=== PATIENT | male | born 1960 | race Caucasian/White ===

== ENCOUNTER 2021-05-17 11:37 | Inpatient (IN) | payer OTHER ==
[2021-05-17 13:16] VITALS: BMI 26.4
[2021-05-17] MEDS ORDERED: MAGNESIUM CITRATE 300 ML BOTTLE PO PRN (15:31)
[2021-05-17] MEDS ORDERED: ONDANSETRON *ODT* 4 MG TABLET SL PRN (15:31)
[2021-05-17] MEDS ORDERED: NICOTINE POLACRILEX 2 MG GUM BUC PRN (15:31)
[2021-05-17] MEDS ORDERED: MAGNESIUM HYDROX 2400MG/30ML ORAL SUSPENSION 30 ML CUP PO PRN (15:31)
[2021-05-17] MEDS ORDERED: NICOTINE 10 MG CARTRIDGE (INHALER) IH PRN (15:31)
[2021-05-17] MEDS ORDERED: MENTHOL/PHENOL 1 EACH UD MM PRN (15:31)
[2021-05-17] MEDS ORDERED: BISMUTH SUBSALICYLATE 524 MG/30 ML PO PRN (15:31)
[2021-05-17] MEDS ORDERED: MAG HYDROX/AL HYDROX/SIMETH 30 ML UNIT-DOSE CUP PO PRN (15:31)
[2021-05-17] MEDS ORDERED: ACETAMINOPHEN 325 MG TABLET (FP) PO PRN ×2 (15:31)
[2021-05-17] MEDS ORDERED: IBUPROFEN 400 MG TABLET (FP) PO PRN (15:31)
[2021-05-17] MEDS ORDERED: diazePAM 5 MG TABLET PO PRN (15:31)
[2021-05-17] MEDS: diazePAM 5 MG TABLET PO SCH ×2 (17:21→22:10)
[2021-05-17] MEDS: METHOCARBAMOL 500 MG TABLET PO PRN (17:24)
[2021-05-17] MEDS: hydrOXYzine PAMOATE 25 MG CAPSULE (FP) PO PRN (22:10)
[2021-05-17] MEDS: MELATONIN 5 MG TABLETS PO SCH (22:10)
[2021-05-17] MEDS: THIAMINE HCL 100 MG TABLET (FP) PO SCH (22:10)
[2021-05-18] MEDS: diazePAM 5 MG TABLET PO SCH ×4 (06:29→22:23)
[2021-05-18] MEDS: NICOTINE 21 MG/24 HOURS TOPICAL PATCH TD SCH (10:38)
[2021-05-18] MEDS: PRENATAL VITAMINS W/ FOLIC ACID TABLET (FP) PO SCH (10:38)
[2021-05-18 14:04] LABS: HEMATOCRIT 49.7 % (35.4-49); HEMOGLOBIN 16.6 GM/dL (11.7-16.9); MCH 32.9 pg (25.7-33.7); MCHC 33.5 g/dl (32.0-35.9); MEAN CELL VOLUME 98.2 fl (80-96); MEAN PLT VOLUME 9.3 fl (7.5-11.1); PLATELET COUNT 189 10^3/uL (134-434); RBC 5.06 M/mm3 (4.00-5.60); RDW 15.4 % (11.9-15.9); WHITE BLOOD COUNT 7.1 K/mm3 (4.0-10.0)
[2021-05-18 14:19] LABS: ALBUMIN 3.5 g/dl (3.4-5.0); CALCIUM 8.8 mg/dL (8.5-10.1)
[2021-05-18 14:20] LABS: BLOOD UREA NITROGEN 8.9 mg/dL (7-18)
[2021-05-18 14:25] LABS: TOT PROT 6.7 g/dl (6.4-8.2)
[2021-05-18 16:50] LABS: HIV INTERPRETATION NEGATIVE (NEGATIVE)
[2021-05-18] MEDS: THIAMINE HCL 100 MG TABLET (FP) PO SCH (22:23)
[2021-05-18] MEDS: MELATONIN 5 MG TABLETS PO SCH (22:24)
[2021-05-19] MEDS: diazePAM 5 MG TABLET PO SCH ×3 (06:12→22:30)
[2021-05-19] MEDS: PRENATAL VITAMINS W/ FOLIC ACID TABLET (FP) PO SCH (10:12)
[2021-05-19] MEDS: NICOTINE 21 MG/24 HOURS TOPICAL PATCH TD SCH (10:12)
[2021-05-19] MEDS: THIAMINE HCL 100 MG TABLET (FP) PO SCH (22:30)
[2021-05-19] MEDS: MELATONIN 5 MG TABLETS PO SCH (22:30)
[2021-05-20] MEDS: diazePAM 5 MG TABLET PO SCH ×2 (05:41→17:54)
[2021-05-20] MEDS: METHOCARBAMOL 500 MG TABLET PO PRN (10:19)
[2021-05-20] MEDS: PRENATAL VITAMINS W/ FOLIC ACID TABLET (FP) PO SCH (10:19)
[2021-05-20] MEDS: NICOTINE 21 MG/24 HOURS TOPICAL PATCH TD SCH (10:22)
[2021-05-20] MEDS: hydrOXYzine PAMOATE 25 MG CAPSULE (FP) PO PRN (10:23)
[2021-05-20] MEDS: MELATONIN 5 MG TABLETS PO SCH (22:20)
[2021-05-20] MEDS: THIAMINE HCL 100 MG TABLET (FP) PO SCH (22:20)
[2021-05-21] MEDS ORDERED: diazePAM 5 MG TABLET PO ONE (06:00)
[2021-05-21 09:56] VITALS: BP 104/57; PULSE 52; TEMP 97.3
[2021-05-21] MEDS: PRENATAL VITAMINS W/ FOLIC ACID TABLET (FP) PO SCH (10:15)
[2021-05-21] MEDS: NICOTINE 21 MG/24 HOURS TOPICAL PATCH TD SCH (10:16)
== END 2021-05-21 13:06 | disposition other institution (70) | DRG 775 ==
LOC: YASAS 11:37 → Y6N 16:40
PROVIDERS: ADMIT Allergy & Immunology; ATTEND Allergy & Immunology
PROC: HZ2ZZZZ Detoxification Services for Substance Abuse Treatment (ICD-10-PCS; principal; 2021-05-17)
DX: F10.230 Alcohol dependence with withdrawal, uncomplicated (principal); F12.20 Cannabis dependence, uncomplicated; F17.210 Nicotine dependence, cigarettes, uncomplicated
CPT/HCPCS: 36415; 80053; 85027; 86780; 87389; 93005; 93010; C9803; U0003; U0005

== ENCOUNTER 2021-05-21 13:12 | Inpatient (IN) | payer OTHER ==
[2021-05-21] MEDS ORDERED: ACETAMINOPHEN 325 MG TABLET (FP) PO PRN (15:12)
[2021-05-21] MEDS ORDERED: LOPERAMIDE HCL 2 MG CAPSULE PO PRN (15:12)
[2021-05-21] MEDS ORDERED: MAGNESIUM CITRATE 300 ML BOTTLE PO PRN (15:12)
[2021-05-21] MEDS ORDERED: P-EPHED 60MG/TRIPROLIDI 2.5MG TABLET PO PRN (15:12)
[2021-05-21] MEDS ORDERED: guaiFENesin 200 MG/10 ML 10 ML UNIT-DOSE CUPS PO PRN (15:12)
[2021-05-21] MEDS ORDERED: MENTHOL/PHENOL 1 EACH UD MM PRN (15:12)
[2021-05-21] MEDS ORDERED: MAGNESIUM HYDROX 2400MG/30ML ORAL SUSPENSION 30 ML CUP PO PRN (15:12)
[2021-05-21] MEDS ORDERED: IBUPROFEN 400 MG TABLET (FP) PO PRN (15:12)
[2021-05-21] MEDS ORDERED: MAG HYDROX/AL HYDROX/SIMETH 30 ML UNIT-DOSE CUP PO PRN (15:12)
[2021-05-21] MEDS: THIAMINE HCL 100 MG TABLET (FP) PO SCH (21:06)
[2021-05-21] MEDS: MELATONIN 5 MG TABLETS PO SCH (21:06)
[2021-05-22] MEDS: PRENATAL VITAMINS W/ FOLIC ACID TABLET (FP) PO SCH (09:45)
[2021-05-22] MEDS: NICOTINE 7 MG/24 HOURS TOPICAL PATCH TD SCH (09:46)
[2021-05-22] MEDS ORDERED: PNEUMOC 13-VAL CONJ-DIP CRM/PF 0.5 ML DISP.SYRIN IM ONE (12:00)
[2021-05-22] MEDS ORDERED: PNEUMOCOCCAL 23 VACCINE 0.5 ML VIAL IM ONE (12:00)
[2021-05-22] MEDS: MELATONIN 5 MG TABLETS PO SCH (21:09)
[2021-05-22] MEDS: THIAMINE HCL 100 MG TABLET (FP) PO SCH (21:09)
[2021-05-23] MEDS: PRENATAL VITAMINS W/ FOLIC ACID TABLET (FP) PO SCH (09:46)
[2021-05-23] MEDS: NICOTINE 10 MG CARTRIDGE (INHALER) IH PRN ×2 (09:46→15:49)
[2021-05-23] MEDS: NICOTINE 7 MG/24 HOURS TOPICAL PATCH TD SCH (09:47)
[2021-05-23] MEDS: MELATONIN 5 MG TABLETS PO SCH (21:27)
[2021-05-23] MEDS: THIAMINE HCL 100 MG TABLET (FP) PO SCH (21:27)
[2021-05-24] MEDS: NICOTINE 7 MG/24 HOURS TOPICAL PATCH TD SCH (09:39)
[2021-05-24] MEDS: PRENATAL VITAMINS W/ FOLIC ACID TABLET (FP) PO SCH (09:39)
[2021-05-24] MEDS: MELATONIN 5 MG TABLETS PO SCH (21:27)
[2021-05-24] MEDS: THIAMINE HCL 100 MG TABLET (FP) PO SCH (21:28)
[2021-05-25] MEDS: PRENATAL VITAMINS W/ FOLIC ACID TABLET (FP) PO SCH (10:03)
[2021-05-25] MEDS: NICOTINE 7 MG/24 HOURS TOPICAL PATCH TD SCH (10:04)
[2021-05-25] MEDS: MELATONIN 5 MG TABLETS PO SCH (21:24)
[2021-05-25] MEDS: THIAMINE HCL 100 MG TABLET (FP) PO SCH (21:24)
[2021-05-26] MEDS: NICOTINE 7 MG/24 HOURS TOPICAL PATCH TD SCH (09:54)
[2021-05-26] MEDS: PRENATAL VITAMINS W/ FOLIC ACID TABLET (FP) PO SCH (09:54)
[2021-05-26] MEDS: hydrOXYzine PAMOATE 25 MG CAPSULE (FP) PO PRN (21:24)
[2021-05-26] MEDS: THIAMINE HCL 100 MG TABLET (FP) PO SCH (21:24)
[2021-05-26] MEDS: MELATONIN 5 MG TABLETS PO SCH (21:24)
[2021-05-27] MEDS: PRENATAL VITAMINS W/ FOLIC ACID TABLET (FP) PO SCH (10:12)
[2021-05-27] MEDS: NICOTINE 7 MG/24 HOURS TOPICAL PATCH TD SCH (10:13)
[2021-05-27] MEDS: hydrOXYzine PAMOATE 25 MG CAPSULE (FP) PO PRN (21:27)
[2021-05-27] MEDS: MELATONIN 5 MG TABLETS PO SCH (21:27)
[2021-05-27] MEDS: THIAMINE HCL 100 MG TABLET (FP) PO SCH (21:27)
[2021-05-28] MEDS: NICOTINE 7 MG/24 HOURS TOPICAL PATCH TD SCH (09:58)
[2021-05-28] MEDS: PRENATAL VITAMINS W/ FOLIC ACID TABLET (FP) PO SCH (09:58)
[2021-05-28] MEDS: MELATONIN 5 MG TABLETS PO SCH (22:01)
[2021-05-28] MEDS: hydrOXYzine PAMOATE 25 MG CAPSULE (FP) PO PRN (22:02)
[2021-05-28] MEDS: THIAMINE HCL 100 MG TABLET (FP) PO SCH (22:02)
[2021-05-29] MEDS: PRENATAL VITAMINS W/ FOLIC ACID TABLET (FP) PO SCH (09:58)
[2021-05-29] MEDS: NICOTINE 10 MG CARTRIDGE (INHALER) IH PRN ×2 (09:59→18:55)
[2021-05-29] MEDS: NICOTINE 7 MG/24 HOURS TOPICAL PATCH TD SCH (10:00)
[2021-05-29] MEDS: THIAMINE HCL 100 MG TABLET (FP) PO SCH (21:31)
[2021-05-29] MEDS: MELATONIN 5 MG TABLETS PO SCH (21:31)
[2021-05-30] MEDS: PRENATAL VITAMINS W/ FOLIC ACID TABLET (FP) PO SCH (09:59)
[2021-05-30] MEDS: NICOTINE 10 MG CARTRIDGE (INHALER) IH PRN ×2 (09:59→22:27)
[2021-05-30] MEDS: NICOTINE 7 MG/24 HOURS TOPICAL PATCH TD SCH (10:00)
[2021-05-30] MEDS: MELATONIN 5 MG TABLETS PO SCH (22:27)
[2021-05-30] MEDS: THIAMINE HCL 100 MG TABLET (FP) PO SCH (22:27)
[2021-05-30] MEDS: hydrOXYzine PAMOATE 25 MG CAPSULE (FP) PO PRN (22:29)
[2021-05-31] MEDS: PRENATAL VITAMINS W/ FOLIC ACID TABLET (FP) PO SCH (09:57)
[2021-05-31] MEDS: NICOTINE 7 MG/24 HOURS TOPICAL PATCH TD SCH (09:58)
[2021-05-31] MEDS: NICOTINE 10 MG CARTRIDGE (INHALER) IH PRN (19:11)
[2021-05-31] MEDS: THIAMINE HCL 100 MG TABLET (FP) PO SCH (22:13)
[2021-05-31] MEDS: MELATONIN 5 MG TABLETS PO SCH (22:13)
[2021-06-01] MEDS: NICOTINE 7 MG/24 HOURS TOPICAL PATCH TD SCH (09:49)
[2021-06-01] MEDS: PRENATAL VITAMINS W/ FOLIC ACID TABLET (FP) PO SCH (09:49)
[2021-06-01] MEDS: NICOTINE 10 MG CARTRIDGE (INHALER) IH PRN ×2 (09:49→20:27)
[2021-06-01] MEDS: THIAMINE HCL 100 MG TABLET (FP) PO SCH (21:26)
[2021-06-01] MEDS: MELATONIN 5 MG TABLETS PO SCH (21:26)
[2021-06-02] MEDS: PRENATAL VITAMINS W/ FOLIC ACID TABLET (FP) PO SCH (09:53)
[2021-06-02] MEDS: NICOTINE 7 MG/24 HOURS TOPICAL PATCH TD SCH (09:53)
[2021-06-02] MEDS: hydrOXYzine PAMOATE 25 MG CAPSULE (FP) PO PRN (21:19)
[2021-06-02] MEDS: THIAMINE HCL 100 MG TABLET (FP) PO SCH (21:19)
[2021-06-02] MEDS: MELATONIN 5 MG TABLETS PO SCH (21:19)
[2021-06-03] MEDS: NICOTINE 7 MG/24 HOURS TOPICAL PATCH TD SCH (09:42)
[2021-06-03] MEDS: PRENATAL VITAMINS W/ FOLIC ACID TABLET (FP) PO SCH (09:42)
[2021-06-03] MEDS: MELATONIN 5 MG TABLETS PO SCH (21:51)
[2021-06-03] MEDS: THIAMINE HCL 100 MG TABLET (FP) PO SCH (21:51)
[2021-06-04] MEDS: NICOTINE 7 MG/24 HOURS TOPICAL PATCH TD SCH (10:04)
[2021-06-04] MEDS: PRENATAL VITAMINS W/ FOLIC ACID TABLET (FP) PO SCH (10:04)
[2021-06-04] MEDS: MELATONIN 5 MG TABLETS PO SCH (21:13)
[2021-06-04] MEDS: THIAMINE HCL 100 MG TABLET (FP) PO SCH (21:14)
[2021-06-05] MEDS ORDERED: PT OWN MED DRAWER 7, Y5N ONE (08:46)
[2021-06-05] MEDS: NICOTINE 7 MG/24 HOURS TOPICAL PATCH TD SCH (09:35)
[2021-06-05] MEDS: PRENATAL VITAMINS W/ FOLIC ACID TABLET (FP) PO SCH (09:35)
[2021-06-05] MEDS: MELATONIN 5 MG TABLETS PO SCH (21:11)
[2021-06-05] MEDS: THIAMINE HCL 100 MG TABLET (FP) PO SCH (21:11)
[2021-06-06] MEDS: PRENATAL VITAMINS W/ FOLIC ACID TABLET (FP) PO SCH (09:43)
[2021-06-06] MEDS: NICOTINE 7 MG/24 HOURS TOPICAL PATCH TD SCH (09:43)
[2021-06-06] MEDS: THIAMINE HCL 100 MG TABLET (FP) PO SCH (22:01)
[2021-06-06] MEDS: MELATONIN 5 MG TABLETS PO SCH (22:01)
[2021-06-07] MEDS: PRENATAL VITAMINS W/ FOLIC ACID TABLET (FP) PO SCH (09:45)
[2021-06-07] MEDS: NICOTINE 7 MG/24 HOURS TOPICAL PATCH TD SCH (09:46)
[2021-06-07] MEDS: hydrOXYzine PAMOATE 25 MG CAPSULE (FP) PO PRN (22:15)
[2021-06-07] MEDS: THIAMINE HCL 100 MG TABLET (FP) PO SCH (22:15)
[2021-06-07] MEDS: MELATONIN 5 MG TABLETS PO SCH (22:15)
[2021-06-08] MEDS: PRENATAL VITAMINS W/ FOLIC ACID TABLET (FP) PO SCH (10:40)
[2021-06-08] MEDS: NICOTINE 7 MG/24 HOURS TOPICAL PATCH TD SCH (10:40)
[2021-06-08] MEDS: THIAMINE HCL 100 MG TABLET (FP) PO SCH (21:20)
[2021-06-08] MEDS: MELATONIN 5 MG TABLETS PO SCH (22:03)
[2021-06-09] MEDS: PRENATAL VITAMINS W/ FOLIC ACID TABLET (FP) PO SCH (09:55)
[2021-06-09] MEDS: NICOTINE 7 MG/24 HOURS TOPICAL PATCH TD SCH (09:56)
[2021-06-09] MEDS: MELATONIN 5 MG TABLETS PO SCH (21:32)
[2021-06-09] MEDS: THIAMINE HCL 100 MG TABLET (FP) PO SCH (21:32)
[2021-06-09] MEDS: hydrOXYzine PAMOATE 25 MG CAPSULE (FP) PO PRN (21:32)
[2021-06-10] MEDS: NICOTINE 7 MG/24 HOURS TOPICAL PATCH TD SCH (09:47)
[2021-06-10] MEDS: PRENATAL VITAMINS W/ FOLIC ACID TABLET (FP) PO SCH (09:47)
[2021-06-10] MEDS ORDERED: TETRAHYDROZOLINE HCL EYE DROPS OU PRN (10:23)
[2021-06-10] MEDS: MELATONIN 5 MG TABLETS PO SCH (21:10)
[2021-06-10] MEDS: THIAMINE HCL 100 MG TABLET (FP) PO SCH (21:10)
[2021-06-11 07:30] VITALS: BP 124/67; PULSE 58; TEMP 96.8
[2021-06-11] MEDS: NICOTINE 10 MG CARTRIDGE (INHALER) IH PRN (09:26)
[2021-06-11] MEDS: NICOTINE 7 MG/24 HOURS TOPICAL PATCH TD SCH (09:26)
[2021-06-11] MEDS: PRENATAL VITAMINS W/ FOLIC ACID TABLET (FP) PO SCH (09:26)
== END 2021-06-11 09:35 | disposition home or self-care (01) | DRG 772 ==
LOC: YASAS 13:12 → Y5N 13:13
PROVIDERS: ADMIT Allergy & Immunology; ATTEND Allergy & Immunology
PROC: HZ42ZZZ Group Counseling for Substance Abuse Treatment, Cognitive-Behavioral (ICD-10-PCS; principal; 2021-05-21)
DX: F10.20 Alcohol dependence, uncomplicated (principal); F12.20 Cannabis dependence, uncomplicated; F17.210 Nicotine dependence, cigarettes, uncomplicated
CPT/HCPCS: 36415; 90732; C9803; G0009; U0003; U0005